=== PATIENT | female | born 1980 | race Caucasian/White ===

== ENCOUNTER 2021-07-08 16:10 | Outpatient (REF) | payer SELFPAY ==
[2021-07-10 10:51] LABS: COVID-19 RT-PCR UVMMC Result Negative (Negative)
== END 2021-07-08 16:11 | disposition home or self-care (01) ==
LOC: LBN 16:10
PROVIDERS: PCP Nurse Practitioner; Visit Provider Family Medicine
DX: Z20.822 Contact with and (suspected) exposure to COVID-19 (principal); R09.81 Nasal congestion
CPT/HCPCS: U0003

== ENCOUNTER 2021-08-28 16:34 | Outpatient (REF) | payer SELFPAY ==
[2021-08-30 15:29] LABS: COVID-19 RT-PCR UVMMC Result Negative (Negative)
== END 2021-08-28 16:35 | disposition home or self-care (01) ==
LOC: LBN 16:34
PROVIDERS: PCP Nurse Practitioner; Visit Provider Student in an Organized Health Care Education/Training Program
DX: Z20.822 Contact with and (suspected) exposure to COVID-19 (principal); R05.9 Cough, unspecified
CPT/HCPCS: U0003